=== PATIENT | female | born 1970 | race Caucasian/White ===

== ENCOUNTER 2016-10-15 12:57 | Observation (INO) | payer OTHER ==
[~2016-10-15] VITALS: Ht 152.4 cm; Wt 60.0 kg
[~2016-10-15 12:57] MED LIST: C-PAP MACHINE; CALTTAB5 PO; CO Q100C9 PO; ESTR1TAB PO; FOLI1 PO; HYDR-2768 PO; LISD70 PO; LORA1TAB PO; LORA2TAB PO; MAGN500T4 PO; METH0.4I3 INJ; METO10 PO; NEUR600T PO; NITR0.4S SL; POTA-243 PO; PRIM50TA PO; ROXI5TAB4 PO; TOCI20IN INJ; TOPA25TA8 PO; VALA500T PO; VORT20TA PO; ZOCO40TA PO
[2016-10-15 13:05] VITALS: BP 143/88; PULSE 96; RESP 14; TEMP 97.6; O2SAT 98
[2016-10-15] MEDS ORDERED: ONDANSETRON HCL 4 MG/2 ML VIAL IV PUSH ONE (13:15)
[2016-10-15] MEDS ORDERED: SODIUM CHLOR 0.9% 1000 ML INJ 1,000 ML IV ONE (13:15)
--- NOTE | 2016-10-15 13:25 | PD ---
HPI Chief Complaint: overdose Time Seen by Provider: 13:12 Travel History International Travel<30 days: No Contact w/Intl Traveler<30days: No History of Present Illness HPI Patient comes in for evaluation under Rodriguez act by police after ingesting unknown amount of pills. Per Rodriguez act patient had empty bottle of Ativan and some other pill bottles beside her bed. Patient told police officers she wanted to . Patient states she has someone to call EMS to have her brought to the hospital so she could have her stomach pumped. Patient reports she just ingested the medications this morning. Patient reports that the lithium that was reportedly ingested was an old prescription she does not take that anymore on a regular basis. Patient has any chest pain, shortness of breath, nausea, vomiting, abdominal pain. Patient's only medical complaint is pain in her right heel. Patient is uncertain why her heel is hurting her. Denies any known injury. Pain is achy like in nature and is worse with palpation. EMS reports patient vomited shortly after their arrival. PFSH Past Medical History Autoimmune Disease: No Bipolar Disorder: Yes Anxiety: Yes Depression: Yes Cancer: No Cardiovascular Problems: Yes (chest pain undetermined reason.) High Cholesterol: Yes Cerebrovascular Accident: Yes (2007) Diabetes: No Diminished Hearing: No Endocrine: No Fibromyalgia: Yes Gastrointestinal Disorders: Yes (DIVERTICULITIS) GERD: No Genitourinary: No Hepatitis: No Hiatal Hernia: No Hypertension: Yes Immune Disorder: Yes (rheumatoid fibromyalgia) Musculoskeletal: Yes (body jerks frequently/unknown reason) Neurologic: Yes (seizure like episode sep 2015 was never determined) Psychiatric: Yes (bi polar) Reproductive: Yes (hx of hysterectomy) Respiratory: Yes (sleep apnea at nite) Migraines: Yes Renal Failure: No Sleep Apnea: Yes Thyroid Disease: No Ulcer: No Menopausal: Yes Para: 2 Past Surgical History Abdominal Surgery: No AICD: No Body Medical Devices: breast augmentation Cardiac Surgery: No (HEART CATH JANUARY 2016) Ear Surgery: No Endocrine Surgery: No Eye Surgery: No Genitourinary Surgery: No Gynecologic Surgery: Yes (hysterectomy) Hysterectomy: Yes Joint Replacement: No Pacemaker: No Thoracic Surgery: Yes (cyst removed from right breast x2) Tonsillectomy: Yes (1980) Other Surgery: Yes (BUNION-1981, BREAST CYST REMOVED-RIGHT) Social History Alcohol Use: Yes (RARELY) Tobacco Use: No (QUIT 1999) Substance Use: No Allergies-Medications (Allergen,Severity, Reaction): Coded Allergies: Metronidazole (Verified Allergy, Severe, Vomiting, 10/15/16) Reported Meds & Prescriptions Reported Meds & Active Scripts Active Reported Potassium Chloride ER (Potassium Chloride) 10 Meq Tab 10 Meq PO TID Estrace (Estradiol) 1 Mg Tab 1 Mg PO DAILY Percocet (Oxycodone-Acetaminophen) 7.5-325 mg Tab 1 Tab PO Q6H PRN Lorazepam 1 Mg Tab 2 Mg PO BID Gabapentin 300 Mg Cap 600 Mg PO BID Mysoline (Primidone) 50 Mg Tab 50 Mg PO BID Zocor (Simvastatin) 40 Mg Tab 40 Mg PO HS Hydrochlorothiazide 25 Mg Tab 25 Mg PO DAILY Topamax (Topiramate) 25 Mg Tab 50 Mg PO HS Topamax (Topiramate) 25 Mg Tab 25 Mg PO DAILY IN THE AM Venlafaxine ER 24 HR (Venlafaxine HCl) 150 Mg Cap 150 Mg PO BID Vyvanse (Lisdexamfetamine Dimesylate) 70 Mg Cap 70 Mg PO DAILY Review of Systems Except as stated in HPI: all other systems reviewed are Neg Physical Exam Narrative GENERAL: Well-developed, overly nourished, in no acute distress, and non-ill appearing. SKIN: Warm and dry. HEAD: Atraumatic. Normocephalic. EYES: Pupils equal and round. EOMI. No scleral icterus. No injection or drainage. ENT: No nasal bleeding or discharge. Mucous membranes pink and moist. NECK: Trachea midline. Supple. No nuclear rigidity. CARDIOVASCULAR: Regular rate and rhythm. No murmur appreciated. RESPIRATORY: No accessory muscle use. No respiratory distress. Clear to auscultation. Breath sounds equal bilaterally. GASTROINTESTINAL: Abdomen soft, minimal tenderness epigastric, nondistended. Hepatic and splenic margins not palpable. Normal bowel sounds 4. No pulsatile mass. MUSCULOSKELETAL: No obvious deformities. No clubbing. No cyanosis. No edema. Full range of motion. Ankle: Neagative anterior draw and Miller test. Negative Leila's sign. No laxity noted with passive inversion and eversion of BL ankles. Negative squeeze test. Pulses equal BL distal to injury. Capillary refill less than 2 seconds distal to injury and equal BL. Sensation equal BL 1st web space. FROM of toes distal to injury and equal BL. NV intact distal to injury and equal BL. Dorsal pulses equal BL. NEUROLOGICAL: Awake and alert. No obvious cranial nerve deficits. Motor grossly within normal limits. Normal speech. PSYCHIATRIC: Insight and judgment abnormal. Data Data Last Documented VS Vital Signs Date Time Temp Pulse Resp B/P Pulse Ox O2 Delivery O2 Flow Rate FiO2 10/15/16 13:16 97 14 97 Room Air 10/15/16 13:05 97.6 143/88 Orders Complete Blood Count With Diff (10/15/16 13:03) Comprehensive Metabolic Panel (10/15/16 13:03) Urinalysis - C+S If Indicated (10/15/16 13:03) Drug Screen, Random Urine (10/15/16 13:03) Electrocardiogram (10/15/16 13:03) Alcohol (Ethanol) (10/15/16 13:03) Salicylates (Aspirin) (10/15/16 13:03) Tylenol (Acetaminophen) (10/15/16 13:03) Psych Screen (10/15/16 13:03) [place] (Li) (10/15/16 13:03) Sodium Chlor 0.9% 1000 Ml Inj (Ns 1000 M (10/15/16 13:15) Ondansetron Inj (Zofran Inj) (10/15/16 13:15) Arterial Blood Gas (Abg) (10/15/16 ) Call Poison Control (10/15/16 13:11) Foot, Complete ([id number]) (10/15/16 ) Ckmb (Isoenzyme) Profile (10/15/16 13:28) Troponin I (10/15/16 13:28) Beta Hcg (Quant/Titer) (10/15/16 13:50) CKMB (10/15/16 13:50) CKMB% (10/15/16 13:50) [place] (Li) (10/15/16 15:04) Electrocardiogram (10/15/16 ) Ph, Urine (10/15/16 15:38) Basic Metabolic Panel (Bmp) (10/15/16 15:44) Labs Laboratory Tests Test 10/15/16 10/15/16 10/15/16 10/15/16 13:30 13:50 15:40 15:53 Blood Gas Puncture Site RT RADIAL Blood Gas Patient Temperature 98.6 Blood Gas HCO3 24 mmol/L Blood Gas Base Excess 0.8 mmol/L Blood Gas Oxygen Saturation 95 % Arterial Blood pH 7.51 Arterial Blood Partial 30 mmHg Pressure CO2 Arterial Blood Partial 103 mmHG Pressure O2 Arterial Blood Oxygen Content 19.0 Vol % Arterial Blood 1.9 % Carboxyhemoglobin Arterial Blood Methemoglobin 1.9 % Blood Gas Hemoglobin 14.2 G/DL Oxygen Delivery Device ROOM AIR Blood Gas Liter Flow L/M Blood Gas Inspired Oxygen 21 % White Blood Count 4.7 TH/MM3 Red Blood Count 4.43 MIL/MM3 Hemoglobin 14.2 GM/DL Hematocrit 42.2 % Mean Corpuscular Volume 95.5 FL Mean Corpuscular Hemoglobin 32.2 PG Mean Corpuscular Hemoglobin 33.7 % Concent Red Cell Distribution Width 15.1 % Platelet Count 316 TH/MM3 Mean Platelet Volume 9.3 FL Neutrophils (%) (Auto) 48.1 % Lymphocytes (%) (Auto) 37.0 % Monocytes (%) (Auto) 13.5 % Eosinophils (%) (Auto) 0.7 % Basophils (%) (Auto) 0.7 % Neutrophils # (Auto) 2.3 TH/MM3 Lymphocytes # (Auto) 1.7 TH/MM3 Monocytes # (Auto) 0.6 TH/MM3 Eosinophils # (Auto) 0.0 TH/MM3 Basophils # (Auto) 0.0 TH/MM3 CBC Comment DIFF FINAL Differential Comment Sodium Level 140 MEQ/L 143 MEQ/L Potassium Level 3.4 MEQ/L 3.6 MEQ/L Chloride Level 107 MEQ/L 110 MEQ/L Carbon Dioxide Level 24.2 MEQ/L 28.3 MEQ/L Anion Gap 9 MEQ/L 5 MEQ/L Blood Urea Nitrogen 13 MG/DL 11 MG/DL Creatinine 0.62 MG/DL 0.68 MG/DL Estimat Glomerular Filtration 104 ML/MIN 93 ML/MIN Rate Random Glucose 90 MG/DL 77 MG/DL Calcium Level 8.9 MG/DL 8.7 MG/DL Total Bilirubin 0.3 MG/DL Aspartate Amino Transf 41 U/L (AST/SGOT) Alanine Aminotransferase 37 U/L (ALT/SGPT) Alkaline Phosphatase 76 U/L Total Creatine Kinase 456 U/L Creatine Kinase MB 0.8 NG/ML Creatine Kinase MB % 0.2 % Troponin I LESS THAN 0.02 NG/ML Total Protein 7.4 GM/DL Albumin 3.8 GM/DL Human Chorionic Gonadotropin, LESS THAN 1 Quant MIU/ML Salicylates Level 1.8 MG/DL Acetaminophen Level LESS THAN 2.0 MCG/ML [place] Level 2.3 MEQ/L 2.0 MEQ/L Ethyl Alcohol Level LESS THAN 3 MG/DL MDM Medical Decision Making Medical Screen Exam Complete: Yes Emergency Medical Condition: Yes Interpretation(s) EKG reviewed by Dr. Burton, shows sinus rhythm with ventricular rate of 90. No STEMI. Repeat EKG reviewed by Dr. Burton, shows sinus rhythm with ventricular rate of 85. No STEMI. Differential Diagnosis [place] intoxication, overdose, suicidal, homicidal, fracture, contusion, sprain , other Narrative Course Patient was seen and examined. Initial upper status. Discussed patient with Dr. Burton, who saw and evaluated the patient and recommends eye patient placed in observation for repeat lithium levels. Discussed all findings and plan of care with patient. Physician Communication Physician Communication [id number] Paniagua who is agreeable to admit the patient. Diagnosis Primary Impression: [place] overdose Qualified Code: T56.892A - [place] overdose, intentional self-harm, initial encounter Additional Impression: Suicidal intent Admitting Information Admitting Physician Requests: Observation Condition: Stable Don Bhakta Oct 15, 2016 13:25
[2016-10-15 13:37] LABS: BLOOD GAS BASE EXCESS 0.8 mmol/L (-2-2); BLOOD GAS CARBOXYHEMOGLOBIN 1.9 % (0-4); BLOOD GAS HCO3 24 mmol/L (22-26); BLOOD GAS METHEMOGLOBIN 1.9 % (0-2); BLOOD GAS O2 HGB SATURATION 95 % (90-100); BLOOD GAS PCO2 30 mmHg (38-42); BLOOD GAS PO2 103 mmHG (61-120); BLOOD GAS TOTAL HGB 14.2 G/DL (12.0-16.0); TEMP CORR TO 98.6
[2016-10-15 13:38] LABS: CRITICAL VALUE YES; DRAW SITE RT RADIAL; FIO2 21 %; NUMBER OF ARTERIAL PUNCTURES 1; OXYGEN DEVICE ROOM AIR; STAT YES; ULNAR PULSE PRESENT
--- NOTE | 2016-10-15 14:07 | RADRPT ---
EXAM DATE/TIME: 10/15/2016 13:57 [facility] COMPARISON: No previous studies available for comparison. INDICATIONS : Right foot pain, no injury. MEDICAL HISTORY : None. SURGICAL HISTORY : None. ENCOUNTER: Initial ACUITY: 1 day PAIN SCORE: 4/10 LOCATION: Right plantar surface of foot FINDINGS: Three view examination of the right foot demonstrates no soft tissue swelling, dislocation, or fractu re. The tarsal bones appear intact. The interphalangeal and metatarsophalangeal joints are intact. Hallux valgus of the first metatarsophalangeal joint with bursal calcification The calcaneus is int act. Bony mineralization is normal. CONCLUSION: Hallux valgus first metatarsophalangeal joint with bursal calcification Filiberto Ruvalcaba MD on October 15, 2016 at 14:05 Board Certified Radiologist. This report was verified electronically.
[2016-10-15 14:11] LABS: AUTOMATED NEUTROPHIL # 2.3 TH/MM3 (1.8-7.7); BASOPHIL % 0.7 % (0.0-2.0); EOSINOPHIL % 0.7 % (0.0-4.0); HEMATOCRIT 42.2 % (35.0-46.0); HEMO FLAGS DIFF FINAL; LYMPHOCYTE # 1.7 TH/MM3 (1.0-4.8); MEAN CELL VOLUME 95.5 FL (80.0-100.0); MEAN CORPUSCULAR HEMOGLOBIN 32.2 PG (27.0-34.0); MEAN CORPUSCULAR HGB CONC 33.7 % (32.0-36.0); MONO % 13.5 % (0.0-8.0); NEUT % 48.1 % (16.0-70.0); PLATELET COUNT 316 TH/MM3 (150-450); RED BLOOD COUNT 4.43 MIL/MM3 (4.00-5.30); RED CELL DISTRIBUTION WIDTH 15.1 % (11.6-17.2); WHITE BLOOD COUNT 4.7 TH/MM3 (4.0-11.0)
[2016-10-15 14:34] LABS: ANION GAP 9 MEQ/L (5-15); AST (GOT) 41 U/L (15-37); BICARBONATE 24.2 MEQ/L (21.0-32.0); BLOOD UREA NITROGEN 13 MG/DL (7-18); CHLORIDE 107 MEQ/L (98-107); GLOMERULAR FILTRATION RATE 104 ML/MIN (>89); SODIUM (NA) 140 MEQ/L (136-145)
[2016-10-15 14:37] LABS: POTASSIUM 3.4 MEQ/L (3.5-5.1)
[2016-10-15 14:39] LABS: CREATINE KINASE 456 U/L (26-192)
[2016-10-15 14:41] LABS: ALKALINE PHOSPHATASE 76 U/L (45-117); ALT (GPT) 37 U/L (10-53); BETA HCG QUANT LESS THAN 1 MIU/ML (0-5); TOTAL BILIRUBIN ADULT 0.3 MG/DL (0.2-1.0)
[2016-10-15 14:42] LABS: ACETAMINOPHEN LESS THAN 2.0 MCG/ML (10.0-30.0)
[2016-10-15 14:52] LABS: CKMB 0.8 NG/ML (0.5-3.6)
[2016-10-15] MEDS ORDERED: PRIM50 PO (15:15)
[2016-10-15] MEDS ORDERED: PERC7.5T13 PO (15:15)
[2016-10-15] MEDS ORDERED: GABA300C5 PO (15:15)
[2016-10-15] MEDS ORDERED: TOPA25TA8 PO ×2 (15:15)
[2016-10-15] MEDS ORDERED: ESTR1 PO (15:15)
[2016-10-15] MEDS ORDERED: POTA10TA2 PO (15:15)
[2016-10-15] MEDS ORDERED: ZOCO40TA PO (15:15)
[2016-10-15] MEDS ORDERED: LISD70 PO (15:15)
[2016-10-15] MEDS ORDERED: VENL150C39 PO (15:15)
[2016-10-15] MEDS ORDERED: LORA1TAB12 PO (15:15)
[2016-10-15] MEDS ORDERED: HYDR25TA5 PO (15:15)
[2016-10-15 16:46] LABS: BICARBONATE 28.3 MEQ/L (21.0-32.0)
[2016-10-15 16:52] LABS: POTASSIUM 3.6 MEQ/L (3.5-5.1)
[2016-10-15] MEDS ORDERED: NALOXONE HCL 0.4 MG/ML AMP IV PRN (18:15)
[2016-10-15] MEDS ORDERED: ONDANSETRON HCL 4 MG/2 ML VIAL IVP PRN (18:15)
[2016-10-15] MEDS ORDERED: ACETAMINOPHEN 325 MG TAB PO PRN (18:15)
[2016-10-15] MEDS ORDERED: SODIUM CHLORIDE 0.9% FLUSH 5 ML FLUSH FLUSH PRN (18:15)
--- NOTE | 2016-10-15 18:47 | HHI.HP ---
[facility] Primary Care Physician Power Calvert MD Admission Diagnosis lithium overdose, suicidal Diagnoses: Chief Complaint: Suicide attempt overdose Travel History International Travel<30 Days: No Contact w/Intl Traveler <30 Da: No Traveled to Known Affected Are: No History of Present Illness This is a 45 female patient with past medical history which includes bipolar, anxiety/depression, hyperlipidemia, CVA 2007 no residual weakness, fibromyalgia , diverticulitis, hypertension, rheumatoid arthritis, sleep apnea does use CPAP machine at home. Patient reports her is leaving her and therefore she tried to commit suicide by taking, "a bunch of her old indications." Patient is unsure what she took or the amounts patient reports that she initially took her old medication prescriptions included lithium and other medications on Friday reports she woke up on Friday and was still, "here," therefore she took more medications today 911 was called by patient's . Patient at this time appears in no acute distress alert and oriented 3 denies fevers chills nausea diarrhea constipation chest pain or shortness of breath. Patient did report she vomited times one in the ambulance on the right here. Patient does report right heel pain worse with palpation or weightbearing first noticed this on Friday when she woke up. Patient is unable to describe the pain. Review of Systems Other All other systems reviewed and negative except as mentioned in history of present illness Past Family Social History Past Medical History bipolar, anxiety/depression, hyperlipidemia, CVA 2007 no residual weakness, fibromyalgia, diverticulitis, hypertension, rheumatoid arthritis, sleep apnea does use CPAP machine at home Past Surgical History Hysterectomy, breast augmentation, cardiac catheterization January 2016, cyst removed from right breast 2, tonsillectomy, bunionectomy Reported Medications Potassium Chloride ER (Potassium Chloride) 10 Meq Tab 10 Meq PO TID Estrace (Estradiol) 1 Mg Tab 1 Mg PO DAILY Percocet (Oxycodone-Acetaminophen) 7.5-325 mg Tab 1 Tab PO Q6H PRN Lorazepam 1 Mg Tab 2 Mg PO BID Gabapentin 300 Mg Cap 600 Mg PO BID Mysoline (Primidone) 50 Mg Tab 50 Mg PO BID Zocor (Simvastatin) 40 Mg Tab 40 Mg PO HS Hydrochlorothiazide 25 Mg Tab 25 Mg PO DAILY Topamax (Topiramate) 25 Mg Tab 50 Mg PO HS Topamax (Topiramate) 25 Mg Tab 25 Mg PO DAILY IN THE AM Venlafaxine ER 24 HR (Venlafaxine HCl) 150 Mg Cap 150 Mg PO BID Vyvanse (Lisdexamfetamine Dimesylate) 70 Mg Cap 70 Mg PO DAILY Allergies: Coded Allergies: Metronidazole (Verified Allergy, Severe, Vomiting, 10/15/16) Active Ordered Medications Current Medications Medications (Trade) Dose Ordered Sig/Heriberto Route Start Time Stop Time Status Last Admin (NS 1000 ml Inj) 1,000 ml @ 75 mls/hr [id number] IV 10/15/16 18:01 (NS Flush) 2 ml UNSCH PRN FLUSH 10/15/16 18:15 (NS Flush) 2 ml BID FLUSH 10/15/16 21:00 (Tylenol) 650 mg Q4H PRN PO 10/15/16 18:15 (Zofran Inj) 4 mg Q6H PRN IVP 10/15/16 18:15 (Narcan Inj) 0.4 mg UNSCH PRN IV 10/15/16 18:15 Family History Mother positive for melanoma stage III diagnosed in her 70s Father has heart disease hypertension and hyperlipidemia Social History Rare EtOH use Denies tobacco use quit in 1999 Denies illicit drug use Physical Exam Vital Signs Vital Signs Date Time Temp Pulse Resp B/P Pulse Ox O2 Delivery O2 Flow Rate FiO2 10/15/16 13:16 97 14 97 Room Air 10/15/16 13:05 97.6 96 14 143/88 98 Physical Exam GENERAL: This is a well-nourished, well-developed patient, in no apparent distress. SKIN: No rashes, ecchymoses or lesions. Cool and dry. Right heel skin intact blanchable skin HEAD: Atraumatic. Normocephalic. No temporal or scalp tenderness. EYES: Extraocular motions intact. No scleral icterus. No injection or drainage. ENT: Nose without bleeding, purulent drainage or septal hematoma. Throat without erythema, tonsillar hypertrophy or exudate. Uvula midline. Airway patent. NECK: Trachea midline. No JVD or lymphadenopathy. Supple, nontender, no meningeal signs. CARDIOVASCULAR: Regular rate and rhythm without murmurs, gallops, or rubs. RESPIRATORY: Clear to auscultation. Breath sounds equal bilaterally. No wheezes , rales, or rhonchi. GASTROINTESTINAL: Abdomen soft, non-tender, nondistended. No hepato-splenomegaly , or palpable masses. No guarding. MUSCULOSKELETAL: Extremities without clubbing, cyanosis, or edema. No joint tenderness, effusion, or edema noted. No calf tenderness. Negative Homans sign bilaterally. NEUROLOGICAL: Awake and alert. No focal deficit. Motor and sensory grossly within normal limits. Five out of 5 muscle strength in all muscle groups. Normal speech. Laboratory Laboratory Tests Test 10/15/16 10/15/16 10/15/16 10/15/16 13:30 13:50 15:40 15:53 Blood Gas Puncture Site RT RADIAL Blood Gas Patient Temperature 98.6 Blood Gas HCO3 24 Blood Gas Base Excess 0.8 Blood Gas Oxygen Saturation 95 Arterial Blood pH 7.51 Arterial Blood Partial 30 Pressure CO2 Arterial Blood Partial 103 Pressure O2 Arterial Blood Oxygen Content 19.0 Arterial Blood 1.9 Carboxyhemoglobin Arterial Blood Methemoglobin 1.9 Blood Gas Hemoglobin 14.2 Oxygen Delivery Device ROOM AIR Blood Gas Liter Flow Blood Gas Inspired Oxygen 21 White Blood Count 4.7 Red Blood Count 4.43 Hemoglobin 14.2 Hematocrit 42.2 Mean Corpuscular Volume 95.5 Mean Corpuscular Hemoglobin 32.2 Mean Corpuscular Hemoglobin 33.7 Concent Red Cell Distribution Width 15.1 Platelet Count 316 Mean Platelet Volume 9.3 Neutrophils (%) (Auto) 48.1 Lymphocytes (%) (Auto) 37.0 Monocytes (%) (Auto) 13.5 Eosinophils (%) (Auto) 0.7 Basophils (%) (Auto) 0.7 Neutrophils # (Auto) 2.3 Lymphocytes # (Auto) 1.7 Monocytes # (Auto) 0.6 Eosinophils # (Auto) 0.0 Basophils # (Auto) 0.0 CBC Comment DIFF FINAL Differential Comment Sodium Level 140 143 Potassium Level 3.4 3.6 Chloride Level 107 110 Carbon Dioxide Level 24.2 28.3 Anion Gap 9 5 Blood Urea Nitrogen 13 11 Creatinine 0.62 0.68 Estimat Glomerular Filtration 104 93 Rate Random Glucose 90 77 Calcium Level 8.9 8.7 Total Bilirubin 0.3 Aspartate Amino Transf 41 (AST/SGOT) Alanine Aminotransferase 37 (ALT/SGPT) Alkaline Phosphatase 76 Total Creatine Kinase 456 Creatine Kinase MB 0.8 Creatine Kinase MB % 0.2 Troponin I LESS THAN 0.02 Total Protein 7.4 Albumin 3.8 Human Chorionic Gonadotropin, LESS THAN 1 Quant Salicylates Level 1.8 Acetaminophen Level LESS THAN 2.0 [place] Level 2.3 2.0 Ethyl Alcohol Level LESS THAN 3 Result Diagram: 10/15/16 1350 10/15/16 1553 Imaging Last Impressions Foot X-Ray 10/15/16 0000 Signed Impressions: Service Date/Time: Saturday, October 15, 2016 13:57 - CONCLUSION: Hallux valgus first metatarsophalangeal joint with bursal calcification Filiberto Ruvalcaba MD Assessment and Plan Assessment and Plan This is a 45 female patient with past medical history which includes bipolar, anxiety/depression, hyperlipidemia, CVA 2007 no residual weakness, fibromyalgia , diverticulitis, hypertension, rheumatoid arthritis, sleep apnea does use CPAP machine at home. Patient reports her is leaving her and therefore she tried to commit suicide by taking, "a bunch of her old indications." Patient is unsure what she took or the amounts patient reports that she initially took her old medication prescriptions included lithium and other medications on Friday reports she woke up on Friday and was still, "here," therefore she took more medications today 911 was called. Suicide attempt- Sitter at bedside Psychiatry consulted Drug overdose unknown medication or mouth [place] level elevated 2.3 Admitted to observation Continuous telemetry monitoring Serial EKGs Recheck lithium level in a.m. CMP in a.m. CBC in a.m. EKG reviewed by myself as well as Dr. Paniagua sinus rhythm heart rate in the 90s Zofran for nausea Hold home medication at this time Elevated CPK at 456 likely secondary to inability IV fluids normal saline at 75 cc per hour Recheck in a.m. Sleep apnea patient does use CPAP machine at home refuses to use hospital CPAP Right heel pain- skin intact and blanchable pressure offloading Chronic conditions include hyperlipidemia history of CVA, fibromyalgia, hypertension, rheumatoid arthritis hold home medications continue to monitor DVT prophylaxis with SCDs Discussed plan of care with patient ER provider and RN Written by Mary Castrejon, acting as scribe for Dr. Paniagua on 10/15/16 at 18:43. Attending Statement The documentation accurately reflects the work performed [id number] by me, Dr. Paniagua on 10/15/16 at 18:43. Mary Castrejon Oct 15, 2016 18:47 Kolton Paniagua MD Oct 16, 2016 08:42
[2016-10-15 19:07] VITALS: BP 128/73; PULSE 77; RESP 16; O2SAT 97
[2016-10-15 19:15] VITALS: BP 159/89; PULSE 107; RESP 18; O2SAT 100
[2016-10-15] MEDS: SODIUM CHLOR 0.9% 1000 ML INJ 1,000 ML IV SCH (19:15)
--- NOTE | 2016-10-15 19:20 | EKG ---
Date Performed: 10/15/2016 Time Performed: 15:24:08 PTAGE: 45 years EKG: Sinus rhythm NORMAL ECG NO SIGNIFICANT CHANGE FROM PRIOR ELECTROCARDIOGRAM. PREVIOUS TRACING : 10/15/2016 13.17 DOCTOR: Kevin Morris Interpretating Date/Time 10/15/2016 19:19:29
--- NOTE | 2016-10-15 19:23 | EKG ---
Date Performed: 10/15/2016 Time Performed: 13:17:37 PTAGE: 45 years EKG: Sinus rhythm MINIMAL ST DEPRESSION BORDERLINE ECG NO SIGNIFICANT CHANGE FROM PRIOR ELECTROCARDIOGRAM. PREVIOUS TRACING : 02/08/2016 06.39 DOCTOR: Kevin Morris Interpretating Date/Time 10/15/2016 19:21:54
[2016-10-15] MEDS: SODIUM CHLORIDE 0.9% FLUSH 5 ML FLUSH FLUSH SCH (21:00)
[2016-10-15 22:18] VITALS: BP 118/65; PULSE 82; RESP 18; TEMP 98.7; O2SAT 100
[2016-10-16 01:25] VITALS: PULSE 72
[2016-10-16 02:42] LABS: CKMB 0.5 NG/ML (0.5-3.6)
[2016-10-16 05:23] LABS: AUTOMATED NEUTROPHIL # 1.9 TH/MM3 (1.8-7.7); BASOPHIL % 0.6 % (0.0-2.0); EOSINOPHIL % 0.8 % (0.0-4.0); HEMATOCRIT 35.8 % (35.0-46.0); HEMO FLAGS DIFF FINAL; LYMPH % 37.9 % (9.0-44.0); LYMPHOCYTE # 1.4 TH/MM3 (1.0-4.8); MEAN CELL VOLUME 95.5 FL (80.0-100.0); MEAN CORPUSCULAR HEMOGLOBIN 31.6 PG (27.0-34.0); MEAN CORPUSCULAR HGB CONC 33.1 % (32.0-36.0); MONO % 10.8 % (0.0-8.0); NEUT % 49.9 % (16.0-70.0); PLATELET COUNT 252 TH/MM3 (150-450); RED BLOOD COUNT 3.74 MIL/MM3 (4.00-5.30); RED CELL DISTRIBUTION WIDTH 15.4 % (11.6-17.2); WHITE BLOOD COUNT 3.8 TH/MM3 (4.0-11.0)
--- NOTE | 2016-10-16 05:39 | EKG ---
Date Performed: 10/15/2016 Time Performed: 20:18:43 PTAGE: 45 years EKG: Sinus rhythm MODERATE INTRAVENTRICULAR CONDUCTION DELAY Nonspecific ST segment changes BORDERLINE ECG NO SIGNIFIC ANT CHANGE FROM PRIOR ELECTROCARDIOGRAM. PREVIOUS TRACING : 10/15/2016 18.44 DOCTOR: Kevin Morris Interpretating Date/Time 10/16/2016 05:38:30
--- NOTE | 2016-10-16 05:44 | EKG ---
Date Performed: 10/15/2016 Time Performed: 18:44:25 PTAGE: 45 years EKG: Sinus rhythm MODERATE INTRAVENTRICULAR CONDUCTION DELAY Borderline nonspecific ST segment changes BORDERLINE ECG NO SIGNIFICANT CHANGE FROM PRIOR ELECTROCARDIOGRAM. PREVIOUS TRACING : 10/15/2016 15.24 DOCTOR: Kevin Morris Interpretating Date/Time 10/16/2016 05:42:57
[2016-10-16 05:53] LABS: ALKALINE PHOSPHATASE 60 U/L (45-117); ALT (GPT) 26 U/L (10-53); ANION GAP 12 MEQ/L (5-15); AST (GOT) 25 U/L (15-37); BICARBONATE 21.7 MEQ/L (21.0-32.0); BLOOD UREA NITROGEN 6 MG/DL (7-18); CHLORIDE 114 MEQ/L (98-107); GLOMERULAR FILTRATION RATE 110 ML/MIN (>89); POTASSIUM 3.9 MEQ/L (3.5-5.1); SODIUM (NA) 148 MEQ/L (136-145); TOTAL BILIRUBIN ADULT 0.2 MG/DL (0.2-1.0)
[2016-10-16 07:41] VITALS: BP 135/71; PULSE 82; RESP 18; TEMP 98.3; O2SAT 99
[2016-10-16] MEDS: SODIUM CHLOR 0.9% 1000 ML INJ 1,000 ML IV SCH (08:33)
[2016-10-16] MEDS: SODIUM CHLORIDE 0.9% FLUSH 5 ML FLUSH FLUSH SCH (08:33)
[2016-10-16 09:00] VITALS: PULSE 85
[2016-10-16] MEDS ORDERED: SODIUM CHLOR 0.45% 1000 ML INJ 1,000 ML IV SCH (10:00)
[2016-10-16] MEDS ORDERED: FOLIC ACID 1 MG TAB PO ONE (10:15)
[2016-10-16 12:24] VITALS: BP 120/87; PULSE 75; RESP 20; TEMP 99.6; O2SAT 99
--- NOTE | 2016-10-16 12:56 | PD.CONS ---
Provisional Diagnosis Admission Date Oct 15, 2016 at 18:04 [place] I. Bipolar disorder, most recent episode depressed [place] II. Deferred [place] III. Micanopy toxicity, fibromyalgia, RA, HTN History of Present Illness Service Psychiatry Consult Requested By Primary Care Physician Power Calvert MD HPI The patient is a 45-year-old woman, domiciled with her in [place], unemployed, with a psychiatric history of mood disorder, anxiety, no previous psychiatric hospitalizations, no previous suicidal attempts, she is in outpatient psychiatric care with , weekly psychotherapy with Dr. Ramos, she is on Effexor 150 minute 1 twice a day, lorazepam 2 mg twice a day , medical history of hyperlipidemia, CVA 2008 no residual weakness, fibromyalgia, diverticulitis, hypertension, rheumatoid arthritis, sleep apnea does use CPAP machine at home. She was brought to the ER after a suicidal attempt by overdose. Patient reports her is leaving her and therefore she tried to commit suicide by taking, "a bunch of her old indications including lithium". On psychiatric evaluation patient was guarded, irritable, just superficially cooperative, stating that she doesn't want to talk about the reason of her recent suicidal attempt "I prefer to forget did not want to talk about suicidality anymore, I have tried to commit suicide twice in the last 48 hours, but even the is failing me". She is states that she has overdosed twice in the last 2 days, the first one with sleeping pill and the second one with old prescribed pills that she still keeps at home. Patient says that she regrets that she did not , she prefers to be at this moment. She says that the origin of this depression and desire to is because her is leaving her and for her the life is not worth living. Patient asked to be left alone and not ask so many questions about her personal life. Patient endorses active suicidal ideation, but she doesn't have a plan. She denies suicidal ideation, she denies visual and auditory hallucinations. Patient doesn't seem to be manic, no delusions, paranoia, ideas of reference, flight of ideas, thought controlling, can be observed at this moment. Patient is fully oriented 3. Patient denies the use of alcohol and illicit drugs. Review of Systems Constitutional: DENIES: Diaphoretic episodes, Fatigue, Fever, Weight gain, Weight loss, Chills, Dizziness, Change in appetite, Night Sweats Endocrine: DENIES: Abnorml menstrual pattern, Heat/cold intolerance, Polydipsia , Polyuria, Polyphagia Eyes: DENIES: Blurred vision, Diplopia, Eye inflammation, Eye pain, Vision loss , Photosensitivity, Double Vision Ears, nose, mouth, throat: DENIES: Tinnitus, Hearing loss, Vertigo, Nasal discharge, Oral lesions, Throat pain, Hoarseness, Ear Pain, Running Nose, Epistaxis, Sinus Pain, Toothache, Odynophagia Respiratory: DENIES: Apneas, Cough, Snoring, Wheezing, Hemoptysis, Sputum production, Shortness of breath Cardiovascular: DENIES: Chest pain, Palpitations, Syncope, Dyspnea on Exertion , PND, Lower Extremity Edema, Orthopnea, Claudication Genitourinary: DENIES: Abnormal vaginal bleeding, Dysmenorrhea, Dyspareunia, Sexual dysfunction, Urinary frequency, Urinary incontinence, Urgency, Hematuria , Dysuria, Nocturia, Vaginal discharge Musculoskeletal: DENIES: Joint pain, Muscle aches, Stiffness, Joint Swelling, Back pain, Neck pain Hematologic/lymphatic: DENIES: Bruising, Lymphadenopathy Immunologic/allergic: DENIES: Eczema, Urticaria Neurologic: DENIES: Abnormal gait, Headache, Localized weakness, Paresthesias, Seizures, Speech Problems, Tremor, Poor Balance Psychiatric: COMPLAINS OF: Mood changes, Depression, Suicidal Ideation, DENIES : Anxiety, Confusion, Hallucinations, Agitation, Homicidal Ideation, Delusions Past Family Social History Coded Allergies: Metronidazole (Verified Allergy, Severe, Vomiting, 10/15/16) Reported Medications Potassium Chloride ER 10 Meq Tab10 Meq PO TID #60 TAB Ref 0 10/15/16 Estradiol (Estrace)1 Mg Tab1 Mg PO DAILY #30 TAB Ref 0 10/15/16 Oxycodone-Acetaminophen (Percocet)7.5-325 mg Tab1 Tab PO Q6H PRN (PAIN) Ref 0 10/15/16 Lorazepam 1 Mg Tab2 Mg PO BID Ref 0 10/15/16 Gabapentin 300 Mg Taq160 Mg PO BID #60 CAP Ref 0 10/15/16 Primidone (Mysoline)50 Mg Tab50 Mg PO BID #60 TAB Ref 0 10/15/16 Simvastatin (Zocor)40 Mg Tab40 Mg PO HS #30 TAB Ref 0 10/15/16 Hydrochlorothiazide 25 Mg Tab25 Mg PO DAILY #30 TAB Ref 0 10/15/16 Topiramate (Topamax)25 Mg Tab50 Mg PO HS #60 TAB Ref 0 10/15/16 Topiramate (Topamax)25 Mg Tab25 Mg PO DAILY IN THE AM #60 TAB Ref 0 10/15/16 Venlafaxine ER 24 HR 150 Mg Map622 Mg PO BID #30 CAP Ref 0 10/15/16 Lisdexamfetamine (Vyvanse)70 Mg Cap70 Mg PO DAILY #30 CAP Ref 0 10/15/16 Current Medications Medications (Trade) Dose Ordered Sig/Heriberto Route Start Time Stop Time Status Last Admin (NS Flush) 2 ml UNSCH PRN FLUSH 10/15/16 18:15 (NS Flush) 2 ml BID FLUSH 10/15/16 21:00 (Tylenol) 650 mg Q4H PRN PO 10/15/16 18:15 (Zofran Inj) 4 mg Q6H PRN IVP 10/15/16 18:15 Naloxone HCl 0.4 mg 0.4 mg UNSCH PRN IV 10/15/16 18:15 (1/2 NS 1000 ml Inj) 1,000 ml @ 84 mls/hr [id number] IV 10/16/16 10:00 10/16/16 10:58 (Neurontin) 600 mg BID PO 10/16/16 21:00 (Ativan) 2 mg BID PO 10/16/16 21:00 (Topamax) 25 mg DAILY@08 PO 10/17/16 08:00 (Topamax) 50 mg HS PO 10/16/16 21:00 (Folate) 1 mg DAILY PO 10/17/16 09:00 Family History She denies Social History Patient was born and raised in [place], she has believed [employer] 1991, she lives with her and her daughter in [place], she is unemployed, supported by , her highest level of education is an associate degree. Physical Exam Vital Signs Vital Signs Date Time Temp Pulse Resp B/P Pulse Ox O2 Delivery O2 Flow Rate FiO2 10/16/16 12:24 99.6 75 20 120/87 99 10/15/16 19:15 Room Air Mental Status Examination Appearance woman, appropriately age appearing, poorly cooperative, irritable guarded Speech: Hesitant, Slow Orientation: x3 Memory: Unremarkable Thought Process: Logical Thought Content: Unremarkable Hallucination Type: None Attention and Concentration: Good Suicidal Ideation: Yes Previous Suicide Attempts: Yes Homicidal Ideation: No Previous Homicide Attempts: No Judgement: Impulsive, Poor Affect: Irritable, Sad Mood: Irritable Motor Activity: Normal gait Assessment & Plan Problem List: (1) Bipolar disorder with severe depression Assessment & Plan: 45 years old woman, psychiatric history of bipolar disorder, no previous psychiatric hospitalizations, she is in outpatient psychiatric care with Dr. Abreu, weekly outpatient psychotherapy with , she is on Effexor 150 mg daily, Ativan 2 mg twice a day, who was brought to the hospital after a suicidal attempt by overdosing with lithium. Or psychotic evaluation patient is guarded, poorly cooperative, but seems to be fragile and vulnerable, refusing to talk about the circumstances and origin of her depression and suicidal attempt. She did clarify that her is leaving her. She also states that she has overdosed twice in the last 48 hours. Patient isn't feeling actively suicidal, nor specific plan endorsed. Patient represents a very high risk of suicidality at this moment and needs psychiatric admission for stabilization. Please, continue sitter for close observation. No psychotropics at this moment. Continue medical treatment as needed. Collateral information from her and family member, also from her psychiatrist and psychologist are needed to complete psychotic assessment. Brief supportive psychotherapy provided. Please transferred the patient to psychiatry once medically cleared. Med/psy unit could be appropriate. ICD Code: F31.4 Assessment & Plan Estimated LOS: Sushil Marie MD Oct 16, 2016 12:56
--- NOTE | 2016-10-16 14:21 | HHI.PR ---
Subjective Remarks pt says she is feeling better. reports chronic musculoskeletal pain. no N/v. eating, drinking. Objective Vital Signs Date Time Temp Pulse Resp B/P Pulse Ox O2 Delivery O2 Flow Rate FiO2 10/16/16 12:24 99.6 75 20 120/87 99 10/16/16 07:41 98.3 82 18 135/71 99 10/16/16 01:25 72 10/15/16 22:18 98.7 82 18 118/65 100 10/15/16 19:15 107 18 159/89 100 Room Air 10/15/16 19:07 77 16 128/73 97 Result Diagram: 10/16/16 0459 10/16/16 0449 Objective Remarks GENERAL: lying in bed. NAD. AAOx3 SKIN: Warm and dry. HEAD: Normocephalic. EYES: No scleral icterus. No injection or drainage. NECK: Supple, trachea midline. No JVD. CARDIOVASCULAR: Regular rate and rhythm without murmurs, gallops, or rubs. RESPIRATORY: Breath sounds equal bilaterally. No accessory muscle use. GASTROINTESTINAL: Abdomen soft, non-tender, nondistended. MUSCULOSKELETAL: No cyanosis, or edema. heel with no broken skin, blanchable as before BACK: Nontender without obvious deformity. No CVA tenderness. A/P Assessment and Plan This is a 45 female patient with past medical history which includes bipolar, anxiety/depression, hyperlipidemia, CVA 2008 no residual weakness, fibromyalgia , diverticulitis, hypertension, rheumatoid arthritis, sleep apnea does use CPAP machine at home. Patient reports her is leaving her and therefore she tried to commit suicide by taking, "a bunch of her old indications." Patient is unsure what she took or the amounts patient reports that she initially took her old medication prescriptions included lithium and other medications on Friday reports she woke up on Friday and was still, "here," therefore she took more medications today 911 was called. //Suicide attempt- Sitter at bedside Psychiatry consulted //Drug overdose unknown medication or mouth [place] level elevated 2.3 Admitted to observation Continuous telemetry monitoring Serial EKGs Recheck lithium level in a.m. CMP in a.m. CBC in a.m. EKG reviewed by myself as well as Dr. Paniagua sinus rhythm heart rate in the 90s Zofran for nausea Restart home meds. hold non-essential meds Elevated CPK at 456 likely secondary to inability IV fluids normal saline at 75 cc per hour =improved Sleep apnea patient does use CPAP machine at home refuses to use hospital CPAP Right heel pain- skin intact and blanchable pressure offloading. avoid oversedation. //Hypernatremia - 2/2 NS--> switch to 1/2 NS today, encourage PO intake at PSych //Leukopenia - possibly secondary to MTX. pt denies taking. likely dilutional. anc WNL. no fevers. f/u CBC tomorrow at psych. Chronic conditions include hyperlipidemia history of CVA, fibromyalgia, hypertension, rheumatoid arthritis hold home medications continue to monitor -followup with Rheumatology in 1 week- pt says she is on methrotrexate for RA based on Xrays, negative labs. DVT prophylaxis with SCDs Discharge Planning DC to inpt psychiatry diet regular condition good. Activity ad martha needs CBC/CMP tomorrow encourage PO fluids. see DC med rec for med list. Kolton Paniagua MD Oct 16, 2016 14:21
[2016-10-16 15:05] VITALS: BP 145/70; PULSE 85; RESP 20; TEMP 99.8; O2SAT 100
[2016-10-16] MEDS ORDERED: LORazepam 2 MG TAB PO SCH (21:00)
[2016-10-16] MEDS ORDERED: GABAPENTIN 300 MG CAP PO SCH (21:00)
[2016-10-16] MEDS ORDERED: TOPIRAMATE 25 MG TAB PO SCH (21:00)
[2016-10-17] MEDS ORDERED: TOPIRAMATE 25 MG TAB PO SCH (08:00)
[2016-10-17] MEDS ORDERED: FOLIC ACID 1 MG TAB PO SCH (09:00)
== END 2016-10-16 18:10 ==
LOC: NEPE 12:57 → NEDA 18:04 → NEPFCDU 22:15
PROVIDERS: ADMIT Internal Medicine; ATTEND Internal Medicine
DX: T56.892A Toxic effect of other metals, intentional self-harm, initial encounter (principal); F31.4 Bipolar disorder, current episode depressed, severe, without psychotic features; F41.8 Other specified anxiety disorders; E78.5 Hyperlipidemia, unspecified; I10 Essential (primary) hypertension; G47.30 Sleep apnea, unspecified; M79.7 Fibromyalgia; M06.9 Rheumatoid arthritis, unspecified; Z86.73 Personal history of transient ischemic attack (TIA), and cerebral infarction without residual deficits; Z80.8 Family history of malignant neoplasm of other organs or systems; Z82.49 Family history of ischemic heart disease and other diseases of the circulatory system
CPT/HCPCS: 36600; 73630; 80048; 80053; 80178; 80201; 80329; 82550; 82552; 82805; 84484; 84702; 85025; 93005; 96361; 96374; 99285; G0378; J2405; J7030; 80320; G0480

== ENCOUNTER 2016-10-16 18:19 | Inpatient (IN) | payer OTHER ==
[2016-10-16 05:30] VITALS: BP 131/64; PULSE 74; RESP 18; TEMP 99; O2SAT 100
[~2016-10-16 18:19] MED LIST changes: -C-PAP MACHINE; -CALTTAB5 PO; -CO Q100C9 PO; +ESTR1 PO; -ESTR1TAB PO; -FOLI1 PO; +GABA300C5 PO; -HYDR-2768 PO; +HYDR25TA5 PO; -LORA1TAB PO; +LORA1TAB12 PO; -LORA2TAB PO; -MAGN500T4 PO; -METH0.4I3 INJ; -METO10 PO; -NEUR600T PO; -NITR0.4S SL; +PERC7.5T13 PO; -POTA-243 PO; +POTA10TA2 PO; +PRIM50 PO; -PRIM50TA PO; -ROXI5TAB4 PO; -TOCI20IN INJ; -VALA500T PO; +VENL150C39 PO; -VORT20TA PO
[2016-10-16 18:45] VITALS: BP 143/67; PULSE 85; RESP 18; TEMP 98.6; O2SAT 100
[2016-10-16] MEDS ORDERED: LORazepam 2 MG/ML VIAL IM PRN (23:30)
[2016-10-16] MEDS ORDERED: MAGNESIUM HYDROXIDE SUSP 30 ML CUP PO PRN (23:30)
[2016-10-16] MEDS ORDERED: ALUMINUM/MAGNESIUM/SIMETH 30 ML CUP PO PRN (23:30)
[2016-10-17] MEDS: ACETAMINOPHEN 325 MG TAB PO PRN (00:29)
[2016-10-17] MEDS: LORazepam 1 MG TAB PO PRN ×2 (00:29→21:14)
[2016-10-17 05:00] VITALS: BP 131/64; PULSE 74; RESP 18; TEMP 99; O2SAT 100
[2016-10-17 08:02] LABS: ANION GAP 12 MEQ/L (5-15); BICARBONATE 19.6 MEQ/L (21.0-32.0); BLOOD UREA NITROGEN 4 MG/DL (7-18); CHLORIDE 113 MEQ/L (98-107); GLOMERULAR FILTRATION RATE 92 ML/MIN (>89); LDL CHOLESTEROL 98 MG/DL (0-99); SODIUM (NA) 145 MEQ/L (136-145)
--- NOTE | 2016-10-17 09:29 | PD.CONS ---
[facility] By [facility] team Reason for Consult Medical management Primary Care Physician Serjio Correa MD Diagnoses: History of Present Illness This is a 45 female patient with past medical history which includes bipolar, anxiety/depression, hyperlipidemia, CVA 2007 no residual weakness, fibromyalgia , diverticulitis, hypertension, rheumatoid arthritis, sleep apnea does use CPAP machine at home. Patient reports her is leaving her and therefore she tried to commit suicide by taking, "a bunch of her old indications." Patient is unsure what she took or the amounts patient reports that she initially took her old medication prescriptions included lithium and other medications on Friday reports she woke up on Friday and was still, "here," therefore she took more medications today 911 was called by patient's . Patient was initially admitted to observation from 10/15/2016 to 10/16/2016 and then discharged inpatient psychiatric center. We have been consulted for assistance with medical management. Patient evaluated in room appears anxious. Patient reports she has had intermittent cold sweats and nausea but no vomiting. Patient visibly tremulous consistent with withdrawal symptoms. Patient takes Percocet for chronic lower back and rheumatoid arthritis pain regularly dyspnea has been on hold after the overdose. Patient denies shortness of breath chest pain or constipation. Review of Systems Other All other systems reviewed and negative except as mentioned in history of present illness. Past Family Social History Allergies: Coded Allergies: Metronidazole (Verified Allergy, Severe, Vomiting, 10/15/16) Past Medical History bipolar, anxiety/depression, hyperlipidemia, CVA 2007 no residual weakness, fibromyalgia, diverticulitis, hypertension, rheumatoid arthritis, sleep apnea does use CPAP machine at home Past Surgical History Hysterectomy, breast augmentation, cardiac catheterization January 2016, cyst removed from right breast 2, tonsillectomy, bunionectomy Reported Medications Estrace (Estradiol) 1 Mg Tab 1 Mg PO DAILY Percocet (Oxycodone-Acetaminophen) 7.5-325 mg Tab 1 Tab PO Q6H PRN Lorazepam 1 Mg Tab 2 Mg PO BID Gabapentin 300 Mg Cap 600 Mg PO BID Zocor (Simvastatin) 40 Mg Tab 40 Mg PO HS Topamax (Topiramate) 25 Mg Tab 50 Mg PO HS Topamax (Topiramate) 25 Mg Tab 25 Mg PO DAILY IN THE AM Active Ordered Medications Current Medications Medications (Trade) Dose Ordered Sig/Heriberto Route Start Time Stop Time Status Last Admin (Ativan) 1 mg Q6H PRN PO 10/16/16 23:30 10/17/16 00:29 (Ativan Inj) 1 mg Q6H PRN IM 10/16/16 23:30 (Tylenol) 650 mg Q4H PRN PO 10/16/16 23:30 10/17/16 00:29 (Milk Of Magnesia Liq) 30 ml DAILY PRN PO 10/16/16 23:30 (Mag-Al Plus Susp Liq) 30 ml Q6H PRN PO 10/16/16 23:30 Family History Mother positive for melanoma stage III diagnosed in her 70s Father has heart disease hypertension and hyperlipidemia Social History Rare EtOH use Denies tobacco use quit in 1999 Denies illicit drug use Physical Exam Vital Signs Vital Signs Date Time Temp Pulse Resp B/P Pulse Ox O2 Delivery O2 Flow Rate FiO2 10/17/16 05:00 99.0 74 18 131/64 100 10/16/16 18:45 98.6 85 18 143/67 100 Physical Exam GENERAL: Sitting on edge of been. visually tremulous bilateral upper extremities. Anxious in appearance AAOx3 SKIN: Warm and dry. HEAD: Normocephalic. EYES: No scleral icterus. No injection or drainage. NECK: Supple, trachea midline. No JVD. CARDIOVASCULAR: Regular rate and rhythm without murmurs, gallops, or rubs. RESPIRATORY: Breath sounds equal bilaterally. No accessory muscle use. GASTROINTESTINAL: Abdomen soft, non-tender, nondistended. MUSCULOSKELETAL: No cyanosis, or edema. heel with no broken skin, blanchable BACK: Nontender without obvious deformity. No CVA tenderness. Laboratory Laboratory Tests Test 10/17/16 06:53 Sodium Level 145 Potassium Level 3.0 Chloride Level 113 Carbon Dioxide Level 19.6 Anion Gap 12 Blood Urea Nitrogen 4 Creatinine 0.69 Estimat Glomerular Filtration 92 Rate Random Glucose 101 Calcium Level 8.9 Triglycerides Level 144 Cholesterol Level 192 LDL Cholesterol 98 HDL Cholesterol 65.0 Cholesterol/HDL Ratio 2.95 Result Diagram: 10/17/16 0653 Assessment and Plan Assessment and Plan This is a 45 female patient with past medical history which includes bipolar, anxiety/depression, hyperlipidemia, CVA 2007 no residual weakness, fibromyalgia , diverticulitis, hypertension, rheumatoid arthritis, sleep apnea does use CPAP machine at home. Patient reports her is leaving her and therefore she tried to commit suicide by taking, "a bunch of her old indications." Patient is unsure what she took or the amounts patient reports that she initially took her old medication prescriptions included lithium and other medications on Friday reports she woke up on Friday and was still, "here," therefore she took more medications today 911 was called. Patient currently inpatient psychiatric center we have been consulted for medical management. Suicide attempt- management per psychiatric team Drug overdose unknown medication or mouth [place] level elevated 2.3 --> 0.8 on 10/16/2016 Opioid Withdraw will start [place] 5/325 one tablet every 6 hours as needed for pain Elevated CPK at 456 likely secondary to inactivity trending down continue to encourage PO fluid intake Hypokalemia 3.0 replace with 40 by mouth and recheck in a.m. Magnesium pending Sleep apnea patient does use CPAP machine at home refuses to use hospital CPAP Right heel pain- skin intact and blanchable pressure offloading. avoid oversedation. Leukopenia - resolved possibly secondary to MTX. pt denies taking. likely dilutional. anc WNL. no fevers.white blood cell count today 6.3 hyperlipidemia history of CVA, Continue Zocor hypertension- blood pressure stable continue to monitor Rheumatoid arthritis-followup with Rheumatology after discharge DVT prophylaxis patient is ambulatory Thank you for the consultation for allowing us to participate the care of this patient Discussed plan of care with patient and RN Written by Mary Castrejon, acting as scribe for on 10/17/16 at 16: 00. The documentation accurately reflects the work performed [id number] by me on at 16:00. Mary Castrejon Oct 17, 2016 09:29 Selwyn Hughes DO Oct 17, 2016 18:34
[2016-10-17] MEDS ORDERED: POTASSIUM CHLORIDE 20 MEQ CONTROLLED RELEASE TAB PO ONE (09:30)
[2016-10-17 10:28] LABS: AUTOMATED NEUTROPHIL # 4.2 TH/MM3 (1.8-7.7); BASOPHIL % 0.5 % (0.0-2.0); EOSINOPHIL % 0.4 % (0.0-4.0); HEMO FLAGS DIFF FINAL; LYMPH % 27.7 % (9.0-44.0); LYMPHOCYTE # 1.7 TH/MM3 (1.0-4.8); MEAN CELL VOLUME 95.8 FL (80.0-100.0); MEAN CORPUSCULAR HEMOGLOBIN 32.1 PG (27.0-34.0); MEAN CORPUSCULAR HGB CONC 33.5 % (32.0-36.0); MONO % 5.2 % (0.0-8.0); NEUT % 66.2 % (16.0-70.0); PLATELET COUNT 310 TH/MM3 (150-450); RED BLOOD COUNT 3.96 MIL/MM3 (4.00-5.30); RED CELL DISTRIBUTION WIDTH 15.3 % (11.6-17.2); WHITE BLOOD COUNT 6.3 TH/MM3 (4.0-11.0)
[2016-10-17 10:32] LABS: MAGNESIUM 1.9 MG/DL (1.5-2.5)
[2016-10-17 11:59] LABS: HEMOGLOBIN A1a 0.7 %; HEMOGLOBIN A1b 0.9 %; HEMOGLOBIN Ao 85.1 %; HEMOGLOBIN F 1.2 %; HEMOGLOBIN LA1C 2.1 %; HEMOGLOBIN P3 3.8 %
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
[2016-10-17 18:27] VITALS: BP 138/92; PULSE 86; RESP 17; TEMP 98.4; O2SAT 100
[2016-10-17] MEDS: VENLAFAXINE HCL XR 75 MG CAP PO SCH (21:15)
[2016-10-17] MEDS: TOPIRAMATE 25 MG TAB PO SCH (21:15)
[2016-10-17] MEDS: PRAVASTATIN SOD 80 MG TAB PO SCH (21:16)
[2016-10-17 21:20] VITALS: BP 146/80; PULSE 96; RESP 20; TEMP 98.1; O2SAT 100
[2016-10-17] MEDS: ACETAMINOPHEN/HYDROcodone 325 MG/5 MG TAB PO PRN (21:27)
[2016-10-18] MEDS: ACETAMINOPHEN/HYDROcodone 325 MG/5 MG TAB PO PRN (03:20)
[2016-10-18 05:14] VITALS: BP 139/78; PULSE 76; RESP 15; TEMP 97.7
[2016-10-18 08:23] LABS: BICARBONATE 25.3 MEQ/L (21.0-32.0); POTASSIUM 3.3 MEQ/L (3.5-5.1)
[2016-10-18] MEDS: VENLAFAXINE HCL XR 75 MG CAP PO SCH ×2 (08:58→20:43)
[2016-10-18] MEDS: TOPIRAMATE 25 MG TAB PO SCH ×2 (08:58→20:43)
--- NOTE | 2016-10-18 11:14 | HHI.PYPN ---
Subjective Remarks Patient was seen and discussed with the staff software engineer. Patient reported that she has been feeling much better more positive. She had a visit from her family and she got encouraged. She still wants to go through separation and divorce. She denied any suicidal ideation intentions or plan. Denied any active auditory or visual hallucinations. She was encouraged to participate in all the therapeutic activity on the floor. No side effects were complained. Continue with the same treatment. patient services rep to assist Review of Systems Except as stated in HPI: all other systems reviewed are Neg Psychiatric: COMPLAINS OF: Mood changes, Depression Objective Alert: Yes [place]: Person, Place, Date, Situation Mood: Anxious, Depressed Affect: Labile Memory Intact: Recent Hallucinations: Other (denied any active auditory or visual hallucinations) Delusions: No Delusion Type: Other (no obvious delusional material voiced) Suicidal: Ideation (patient denies any suicidal ideation intentions or plan) Homicidal: Ideation (denies) Insight/Judgement Fair Remarks Attention and concentration improving. Gait normal. Language normal. Fund of knowledge average Labs Test 10/18/16 06:34 Sodium Level 148 MEQ/L Potassium Level 3.3 MEQ/L Chloride Level 115 MEQ/L Carbon Dioxide Level 25.3 MEQ/L Anion Gap 8 MEQ/L Blood Urea Nitrogen 6 MG/DL Creatinine 0.53 MG/DL Estimat Glomerular Filtration 124 ML/MIN Rate Random Glucose 99 MG/DL Calcium Level 8.8 MG/DL Vitals/IOs Vital Signs Date Time Temp Pulse Resp B/P Pulse Ox O2 Delivery O2 Flow Rate FiO2 10/18/16 05:14 97.7 76 15 139/78 10/17/16 21:20 100 Assessment & Plan Problem List: (1) Bipolar disorder with severe depression ICD Code: F31.4 Assessment & Plan Estimated LOS: days Justification for Cont. Inpt. Monitoring of the medication Request HC Surrog/Guard Advoc?: No Wes Dee MD Oct 18, 2016 11:14
[2016-10-18] MEDS: ACETAMINOPHEN 325 MG TAB PO PRN (17:48)
[2016-10-18 19:03] VITALS: BP 141/65; PULSE 85; RESP 15; TEMP 98.4; O2SAT 99
[2016-10-18] MEDS: PRAVASTATIN SOD 80 MG TAB PO SCH (20:46)
[2016-10-19] MEDS ORDERED: POTASSIUM CHLORIDE 20 MEQ CONTROLLED RELEASE TAB PO ONE (08:00)
[2016-10-19] MEDS: TOPIRAMATE 25 MG TAB PO SCH ×2 (08:43→20:49)
[2016-10-19] MEDS: VENLAFAXINE HCL XR 75 MG CAP PO SCH ×2 (08:43→20:50)
--- NOTE | 2016-10-19 12:16 | HHI.PR ---
Subjective Remarks Follow up: hypokalemia. Potassium 3.3 this AM Patient reports feeling better today, not as anxious. Patient denies chest pain , SOB, N/V/D. offers no medical complaints at this time Objective Vitals Vital Signs Date Time Temp Pulse Resp B/P Pulse Ox O2 Delivery O2 Flow Rate FiO2 10/18/16 19:03 98.4 85 15 141/65 99 Result Diagram: 10/17/16 0653 10/18/16 0634 Objective Remarks GENERAL: 45 -year-old female patient in no acute distress SKIN: Warm and dry. HEAD: Normocephalic. EYES: No scleral icterus. No injection or drainage. NECK: Supple, trachea midline. No JVD. CARDIOVASCULAR: Regular rate and rhythm without murmurs, gallops, or rubs. RESPIRATORY: Breath sounds equal bilaterally. No accessory muscle use. GASTROINTESTINAL: Abdomen soft, non-tender, nondistended. MUSCULOSKELETAL: No cyanosis, or edema. heel with no broken skin, blanchable BACK: Nontender without obvious deformity. No CVA tenderness. A/P Assessment and Plan This is a 45 female patient with past medical history which includes bipolar, anxiety/depression, hyperlipidemia, CVA 2007 no residual weakness, fibromyalgia , diverticulitis, hypertension, rheumatoid arthritis, sleep apnea does use CPAP machine at home. Patient reports her is leaving her and therefore she tried to commit suicide by taking, "a bunch of her old indications." Patient is unsure what she took or the amounts patient reports that she initially took her old medication prescriptions included lithium and other medications on Friday reports she woke up on Friday and was still, "here," therefore she took more medications today 911 was called. Patient currently inpatient psychiatric center we have been consulted for medical management. Suicide attempt- management per psychiatric team Drug overdose unknown medication or mouth [place]rose level elevated 2.3 --> 0.8 on 10/16/2016 Opioid Withdraw will start Suffield 5/325 one tablet every 6 hours as needed for pain Elevated CPK at 456 likely secondary to inactivity trending down continue to encourage PO fluid intake Hypokalemia 3.3 replace with 20meq by mouth today then start 10meq daily Magnesium 1.9 Sleep apnea patient does use CPAP machine at home refuses to use hospital CPAP Right heel pain- resolved skin intact and blanchable pressure offloading. avoid oversedation. Leukopenia - resolved possibly secondary to MTX. pt denies taking. likely dilutional. anc WNL. no fevers.white blood cell count today 6.3 hyperlipidemia history of CVA, Continue Zocor hypertension- blood pressure stable continue to monitor Rheumatoid arthritis-followup with Rheumatology after discharge DVT prophylaxis patient is ambulatory Patient appears medically stable we'll sign off if patient's condition changes or further assistance is needed please reconsult. Discussed plan of care with patient, RN and . Mary Quarles Oct 19, 2016 12:15 pm Selwyn Hughes DO Oct 19, 2016 2:09 pm is unsure what she took or the amounts patient reports that she initially took her old medication prescriptions included lithium and other medications on Friday reports she woke up on Friday and was still, "here," therefore she took more medications today 911 was called. Patient currently inpatient psychiatric center we have been consulted for medical management. Suicide attempt- management per psychiatric team Drug overdose unknown medication or mouth [place] level elevated 2.3 --> 0.8 on 10/16/2016 Opioid Withdraw will start Suffield 5/325 one tablet every 6 hours as needed for pain Elevated CPK at 456 likely secondary to inactivity trending down continue to encourage PO fluid intake Hypokalemia 3.0 replace with 40 by mouth and recheck in a.m. Magnesium pending Sleep apnea patient does use CPAP machine at home refuses to use hospital CPAP Right heel pain- skin intact and blanchable pressure offloading. avoid oversedation. Leukopenia - resolved possibly secondary to MTX. pt denies taking. likely dilutional. anc WNL. no fevers.white blood cell count today 6.3 hyperlipidemia history of CVA, Continue Zocor hypertension- blood pressure stable continue to monitor Rheumatoid arthritis-followup with Rheumatology after discharge DVT prophylaxis patient is ambulatory Thank you for the consultation for allowing us to participate the care of this patient Discussed plan of care with patient and RN Mary Castrejon Oct 19, 2016 12:15
[2016-10-19] MEDS ORDERED: POTA10CA PO (12:47)
--- NOTE | 2016-10-19 15:42 | HHI.PYPN ---
Subjective Remarks Patient was seen and case discussed with nursing. Patient is pleasant and cooperative with exam. Affect is anxious however patient describes her mood as "pretty good." She has multiple stressors including divorce and feeling that she is a burden to others. She is compliant with her medications and tolerating it well. She denies suicidal ideations thought or plan. Complaining of nausea. Denies pain Objective Alert: Yes [place]: Person, Place, Date, Situation Mood: Anxious, Depressed Affect: Labile Memory Intact: Recent Hallucinations: Other (denied any active auditory or visual hallucinations) Delusions: No Delusion Type: Other (no obvious delusional material voiced) Suicidal: Ideation (patient denies any suicidal ideation intentions or plan) Homicidal: Ideation (denies) Insight/Judgement poor Vitals/IOs Vital Signs Date Time Temp Pulse Resp B/P Pulse Ox O2 Delivery O2 Flow Rate FiO2 10/18/16 19:03 98.4 85 15 141/65 99 Assessment & Plan Problem List: (1) Bipolar disorder with severe depression ICD Code: F31.4 Assessment & Plan Continue current treatment plan. Add Benadryl 50 mg every 6 hours when necessary anxiety, nausea Justification for Cont. Inpt. Patient will decompensate in a less restrictive setting Request HC Surrog/Guard Advoc?: No uEgene Mcfarlane DO Oct 19, 2016 15:41
[2016-10-19] MEDS ORDERED: diphenhydrAMINE HCL 50 MG CAP PO PRN (18:45)
[2016-10-19 18:50] VITALS: BP 113/56; PULSE 100; RESP 16; TEMP 99.3; O2SAT 96
[2016-10-19] MEDS: PRAVASTATIN SOD 80 MG TAB PO SCH (20:49)
[2016-10-19] MEDS: ACETAMINOPHEN/HYDROcodone 325 MG/5 MG TAB PO PRN (21:28)
[2016-10-20] MEDS: ACETAMINOPHEN/HYDROcodone 325 MG/5 MG TAB PO PRN (03:43)
[2016-10-20 06:09] VITALS: BP 125/59; PULSE 82; RESP 16; TEMP 98.6; O2SAT 98
[2016-10-20] MEDS: VENLAFAXINE HCL XR 75 MG CAP PO SCH ×3 (08:29→21:25)
[2016-10-20] MEDS: POTASSIUM CHLORIDE 10 MEQ CAP PO SCH (08:29)
[2016-10-20] MEDS: TOPIRAMATE 25 MG TAB PO SCH ×2 (08:29→20:59)
--- NOTE | 2016-10-20 15:01 | HHI.PYPN ---
Subjective Remarks Patient was seen and case discussed with nursing. Patient appears less visibly anxious. Patient says she finally received a good night of sleep at 7-1/2 hours. She was complaining of intermittent nausea which has resolved. Mood is "okay." She denies suicidal ideation intent or plan. Behaving well on the unit Objective Alert: Yes [place]: Person, Place, Date, Situation Mood: Anxious, Depressed Affect: Labile Memory Intact: Recent Hallucinations: Other (denied any active auditory or visual hallucinations) Delusions: No Delusion Type: Other (no obvious delusional material voiced) Suicidal: Ideation (patient denies any suicidal ideation intentions or plan) Homicidal: Ideation (denies) Insight/Judgement Poor Vitals/IOs Vital Signs Date Time Temp Pulse Resp B/P Pulse Ox O2 Delivery O2 Flow Rate FiO2 10/20/16 06:09 98.6 82 16 125/59 98 Assessment & Plan Problem List: (1) Bipolar disorder with severe depression ICD Code: F31.4 Assessment & Plan Continue current treatment plan Justification for Cont. Inpt. Patient will decompensate in a less restrictive setting Request HC Surrog/Guard Advoc?: No Eugene Mcfarlane DO Oct 20, 2016 15:00
[2016-10-20 19:10] VITALS: BP 120/62; PULSE 86; RESP 16; TEMP 98.5; O2SAT 99
[2016-10-20] MEDS: PRAVASTATIN SOD 80 MG TAB PO SCH (20:59)
[2016-10-21 05:28] VITALS: BP 111/58; PULSE 88; RESP 15; TEMP 98.5; O2SAT 99
[2016-10-21] MEDS: VENLAFAXINE HCL XR 75 MG CAP PO SCH (09:31)
[2016-10-21] MEDS: POTASSIUM CHLORIDE 10 MEQ CAP PO SCH (09:31)
[2016-10-21] MEDS: TOPIRAMATE 25 MG TAB PO SCH (09:31)
--- NOTE | 2016-10-21 10:21 | HHI.DS ---
Psychiatry Discharge Summary Inpatient Psychiatric care?: Yes Advance Directive: No Reason Not Provided: Due to Patient Condition Mental Health AdvanceDirective: No Health Care Proxy: No Admission Admission Date Oct 16, 2016 at 18:19 Admission Diagnosis: (1) Bipolar disorder with severe depression ICD Code: F31.4 GAF Score: 45 Brief History This is a 45-year-old white to female was transferred to psychiatric unit following suicide attempt and was medically stable. Patient claimed that she has been for the last 17 years but in the last 5 years she found out that her was cheating and had an affair. And now she is afraid that he might leave her. And she felt the life was not worth living without him at that point she took a handful of old medication that she had. And her friend called her who in turn called the police and patient was Rodriguez acted. Patient claimed that she has multiple medical problems and pain patient denies any auditory or visual hallucinations or any paranoia at this time she claimed that she has been seeing a psychiatrist and therapist weekly and taking medication to help stabilize her mood. She has been hospitalized 2 more times before when she was a teenage years. Patient now feels sorry and guilty and wants to work as an outpatient. Patient denies any suicidal ideation intentions or plan and willing to cooperate with the treatment while she is on the psychiatric floor. Tobacco Use In Past 30 Days: No Tobacco Past 30 Days Alcohol Use: Never Hospital Course Patient was started on supportive treatment. She persevered in all the therapeutic activity on the floor. Her medication was adjusted. She started to feel better. Denied any suicidal ideation intentions of plan. Denied any auditory or visual hallucinations. She was feeling hopeful about the future she has more support system at home she is going to stay with her daughter and her sister is also came from outside to assist her. She is willing to follow- up as an outpatient she has a psychologist and a psychiatrist. No side effects were complained willing to take the medication at that point arrangements were made for her to be discharged Results Blood Pressure 111 / 58 Vital Signs Date Time Temp Pulse Resp B/P Pulse Ox O2 Delivery O2 Flow Rate FiO2 10/21/16 05:28 98.5 88 15 111/58 99 Laboratory Results Test 10/17/16 06:53 Hemoglobin A1c 5.2 % (4.3-6.0) Triglycerides Level 144 MG/DL (42-150) Cholesterol Level 192 MG/DL (120-200) LDL Cholesterol 98 MG/DL (0-99) HDL Cholesterol 65.0 MG/DL (40.0-60.0) Summary of Major Lab Results Nothing significant Summary of Procedures None Imaging None Pending results at discharge: No Medications # of Antipsychotic meds at D/C: 1 Appropriate >1 Antipsych meds?: 2 Approp Antipsych med options 1 - Minimum of three failed multiple trials of monotherapy. Discharge Discharge Date: Oct 21, 2016 Discharge Diagnosis: (1) Bipolar disorder with severe depression Diagnosis: Principal ICD Code: F31.4 Mental Status Exam at Disch Patient was alert oriented 3 cooperative casually dressed. Her speech was clear spontaneous without any evidence of loose association. Patient denied any suicidal ideation intentions of plan. Patient feels hopeful. With the support from family. Willing to see her psychologist and psychiatrist as an outpatient and take the medication Pt Condition on Discharge: Stable Discharge Disposition: Discharge Home Discharge Instructions Diet Instructions: As Tolerated, No Restrictions Activities you can perform: Regular-No Restrictions Scheduled Appointment: Private Psychiatrist Discharge Time <= 30 minutes Discharge/Advance Care Plan Health Problems: (1) Bipolar disorder with severe depression Goals to promote your health * To prevent worsening of your condition and complications * To maintain your health at the optimal level Directions to meet your goals Take your medications as prescribed Follow your dietary instruction Follow activity as directed Keep your appointments as scheduled Take your immunizations and boosters as scheduled If your symptoms worsen call your PCP, if no PCP go to Urgent Care Center or Emergency Room For 14/04 questions related to your inpatient stay or results of tests pending at discharge, please contact Dr. Wes Dee at Smoking is Dangerous to Your Health. Avoid second hand smoking Wes Dee MD Oct 21, 2016 10:21
[2016-10-21] MEDS ORDERED: VENL75XR PO ×2 (10:24)
[2016-10-21] MEDS ORDERED: TOPA25TA8 PO (10:24)
== END 2016-10-21 13:45 | disposition home or self-care (01) | DRG 885 ==
LOC: H260 18:19
PROVIDERS: ADMIT Psychiatry & Neurology Psychiatry; ATTEND Psychiatry & Neurology Psychiatry
DX: F31.4 Bipolar disorder, current episode depressed, severe, without psychotic features (principal); F11.23 Opioid dependence with withdrawal; I10 Essential (primary) hypertension; T50.901A Poisoning by unspecified drugs, medicaments and biological substances, accidental (unintentional), initial encounter; E78.5 Hyperlipidemia, unspecified; M79.7 Fibromyalgia; M06.9 Rheumatoid arthritis, unspecified; G47.30 Sleep apnea, unspecified; D72.819 Decreased white blood cell count, unspecified; E87.6 Hypokalemia; Z62.810 Personal history of physical and sexual abuse in childhood; Z63.0 Problems in relationship with spouse or partner; Z81.8 Family history of other mental and behavioral disorders; Z86.73 Personal history of transient ischemic attack (TIA), and cerebral infarction without residual deficits; Z87.891 Personal history of nicotine dependence; Z91.5 Personal history of self-harm
CPT/HCPCS: 80048; 80061; 83036; 83735; 85025